=== PATIENT | female | born 1955 | race Caucasian/White ===

== ENCOUNTER → 2018-02-20 | Day surgery (SDC) | payer MEDICAID ==
[~2018-02-20] MED LIST: Midazolam 1 MG/ML 2 ML SDV ONE; Propofol 200 MG/20 ML SDV ONE; Sodium Chloride 0.9% 1,000 ML IV SCH; fentaNYL 100 MCG/2 ML SDV ONE
[2018-02-20 10:02] VITALS: BP 159/92
--- NOTE | 2018-02-23 07:41 | OR ---
DATE OF PROCEDURE: 02/20/2018 PROCEDURE: Colonoscopy. PREOPERATIVE DIAGNOSIS: Screening colonoscopy. POSTOPERATIVE DIAGNOSIS: Screening colonoscopy. FINDINGS: Diverticulosis. RISKS: Risks, benefits, alternatives, and limitations including, but not limited to infection, bleeding, and perforation were explained to the patient, who wished to proceed. COMPLICATION: None. EQUIPMENT MANAGER: None. ANESTHESIA: MAC. PROCEDURE IN DETAIL: The patient was placed in left lateral decubitus position. Digital rectal exam was performed without abnormality. The scope was introduced and advanced atraumatically to the ileocecal valve. A photo was taken of this. The scope was brought back to the ascending, transverse, descending colon, and retroflexed. No evidence of old or new blood. The patient diverticulosis described as mild and limited to sigmoid colon. No polyps. No blood. No masses. No other abnormalities. The patient tolerated the procedure well. Andrew Santoyo MD /[id number]
== END ==
LOC: JP.SDS 07:00
PROVIDERS: ATTEND Surgery
DX: Z12.11 Encounter for screening for malignant neoplasm of colon (principal); I10 Essential (primary) hypertension; Z88.8 Allergy status to other drugs, medicaments and biological substances; Z91.011 Allergy to milk products; Z91.018 Allergy to other foods
CPT/HCPCS: 45378; J2250; J2704; J3010

== ENCOUNTER 2019-03-16 06:52 | Day surgery (SDC) | payer MEDICAID ==
[2019-03-16] MEDS ORDERED: Propofol 200 MG/20 ML SDV ONE (06:53)
[2019-03-16] MEDS ORDERED: fentaNYL 100 MCG/2 ML SDV ONE (06:53)
[2019-03-16] MEDS ORDERED: Midazolam 1 MG/ML 2 ML SDV ONE (06:53)
[2019-03-16] MEDS ORDERED: Sodium Chloride 0.9% 1,000 ML IV SCH (07:30)
[2019-03-16 09:46] VITALS: BP 144/77; PULSE 80
--- NOTE | 2019-03-16 12:48 | OR ---
DATE OF PROCEDURE: 03/16/2019 SURGEON: Andrew Santoyo MD PROCEDURES: 1. Esophagogastroduodenoscopy. 2. Colonoscopy. FINDINGS: 1. Normal esophagogastroduodenoscopy. 2. Diverticulosis, mild, limited to the sigmoid colon without any evidence of old or new blood. 3. Transverse colon polyp, approximately 8 mm, completely removed using cold snare. 4. No definitive etiology for anemia (no evidence of old or new blood). COMPLICATIONS: None. [place] SEAMER: None. PREOPERATIVE DIAGNOSIS: History of anemia. POSTOPERATIVE DIAGNOSIS: History of anemia. RISKS: Risks, benefits, alternatives, and limitations including, but not limited to infection, bleeding, and perforation were explained to the patient and wished to proceed. PROCEDURE IN DETAIL: The patient was placed in left lateral decubitus position. Esophagogastroduodenoscopy scope was introduced and advanced atraumatically to the second part of the duodenum. Scope was brought back into the stomach. No evidence of gastritis, ulceration in the stomach or duodenum. The GE junction appeared normal. The esophagus was normal. No old or new blood noted in the upper scope. Digital rectal exam was performed next. Scope was introduced and advanced atraumatically to the ileocecal valve. The scope was brought back to the ascending, transverse, descending colon, and retroflexed. In the transverse colon, the aforementioned polyp was identified and completely removed using snare. No abnormalities on retroflexion. The diverticulosis was described as mild and limited to sigmoid colon without evidence of diverticulitis or diverticulosis. The etiology of the patient's anemia is most likely not related to her gastrointestinal tract, as there is no evidence of old or new blood. Although the patient does have diverticulosis noted, there is no definitive etiology of the bleeding. Although this is a possibility, there is no evidence of recent bleeding with respect to diverticulosis. The patient tolerated the procedure well. Andrew Santoyo MD /[id number]
== END 2019-03-16 09:40 | disposition home or self-care (01) ==
LOC: JP.SDS 06:52
PROVIDERS: ATTEND Surgery
DX: D12.3 Benign neoplasm of transverse colon (principal); K57.30 Diverticulosis of large intestine without perforation or abscess without bleeding; D64.9 Anemia, unspecified; I10 Essential (primary) hypertension; E11.9 Type 2 diabetes mellitus without complications; E66.01 Morbid (severe) obesity due to excess calories; Z68.44 Body mass index [BMI] 60.0-69.9, adult; Z91.011 Allergy to milk products; Z88.8 Allergy status to other drugs, medicaments and biological substances; Z91.018 Allergy to other foods; Z79.84 Long term (current) use of oral hypoglycemic drugs; Z79.82 Long term (current) use of aspirin; Z79.899 Other long term (current) drug therapy
CPT/HCPCS: 43235; 45385; 88305; J2250; J2704; J3010; J7030

== ENCOUNTER 2019-05-31 09:26 | Inpatient (IN) | payer MEDICAID ==
[2019-05-31] MEDS ORDERED: Tranexamic Acid 1,000 MG in Sodium Chloride 0.9% 50 ML IV PRN (09:51)
[2019-05-31] MEDS ORDERED: fentaNYL 100 MCG/2 ML SDV ONE (09:54)
[2019-05-31] MEDS ORDERED: Midazolam 1 MG/ML 2 ML SDV ONE (09:54)
[2019-05-31] MEDS ORDERED: Propofol 200 MG/20 ML SDV ONE ×2 (09:55→14:34)
[2019-05-31] MEDS ORDERED: Lactated Ringers 1,000 ML IV SCH (10:00)
[2019-05-31] MEDS ORDERED: ceFAZolin 2 GM in Premix Bag 1 BAG IV ONE (10:00)
[2019-05-31] MEDS: Nozin Nasal Sanitizer NASBOTH SCH ×2 (10:15→21:45)
[2019-05-31] MEDS: Tranexamic Acid 1,000 MG in Sodium Chloride 0.9% 50 ML IV ONE ×2 (12:29→18:26)
[2019-05-31] MEDS: ceFAZolin 2 GM in Sodium Chloride 0.9% 50 ML IV ONE ×2 (12:29→18:25)
[2019-05-31] MEDS ORDERED: Povidone-Iodine 10% Soln 118.25 ML Bottle ONE (12:30)
[2019-05-31] MEDS ORDERED: Succinylcholine 200 MG/10 ML MDV ONE (13:36)
[2019-05-31] MEDS ORDERED: Rocuronium 50 MG/5 ML Vial ONE (13:36)
[2019-05-31] MEDS ORDERED: Dexamethasone 4 MG/ML SDV ONE (13:46)
[2019-05-31] MEDS ORDERED: Ondansetron 4 MG/2 ML SDV ONE (13:46)
[2019-05-31] MEDS ORDERED: Tranexamic Acid 1,000 MG in Sodium Chloride 0.9% 50 ML IV ONE (15:00)
[2019-05-31] MEDS ORDERED: Morphine 2 MG/ML Syringe IVPUSH ONE (15:02)
[2019-05-31] MEDS ORDERED: hydrOXYzine HCl 100 MG/2 ML SDV IM ONE (15:03)
--- NOTE | 2019-05-31 15:27 | CR ---
Knee 1V or 2V Rt CLINICAL HISTORY: Right knee pain FINDINGS: Patient is status post recent to 3 component total knee arthroplasty. Components appear well seated. Intra-articular and subcutaneous Impression: Status post recent right knee arthroplasty
[2019-05-31] MEDS ORDERED: Acetaminophen/HYDROcodone 325-5 MG Tab PO PRN (17:09)
[2019-05-31] MEDS ORDERED: Acetaminophen 325 MG Tab PO PRN (17:09)
[2019-05-31] MEDS: Acetaminophen/oxyCODONE 325-5 MG Tab PO PRN ×2 (17:25→21:27)
[2019-05-31] MEDS: Morphine 2 MG/ML Syringe IVPUSH PRN ×3 (17:56→23:35)
[2019-05-31] MEDS: ceFAZolin 1 GM in Premix Bag 1 BAG IV SCH (18:06)
[2019-05-31] MEDS: Docusate Sodium 100 MG Cap PO PRN (21:27)
[2019-06-01] MEDS: Acetaminophen/oxyCODONE 325-5 MG Tab PO PRN ×6 (01:12→23:24)
[2019-06-01] MEDS: ceFAZolin 1 GM in Premix Bag 1 BAG IV SCH ×2 (01:13→10:07)
[2019-06-01] MEDS: Sodium Chloride 0.9% 1,000 ML IV SCH ×2 (01:22→12:11)
[2019-06-01] MEDS: Morphine 2 MG/ML Syringe IVPUSH PRN ×2 (07:49→17:23)
[2019-06-01] MEDS: Potassium Chloride 10 MEQ Cap.ER PO SCH (08:52)
[2019-06-01] MEDS: Nozin Nasal Sanitizer NASBOTH SCH ×2 (08:52→22:03)
[2019-06-01] MEDS: metFORMIN 500 MG Tab PO SCH ×2 (08:52→16:34)
[2019-06-01] MEDS: Enoxaparin 30 MG/0.3 ML Syringe SUBCUT SCH (08:53)
[2019-06-01] MEDS: Lisinopril 20 MG Tab PO SCH (08:53)
[2019-06-01] MEDS: glipiZIDE 5 MG Tab.ER PO SCH (08:53)
[2019-06-01] MEDS ORDERED: [UNRECOGNIZED DRUG - OTHER] PO SCH (09:00)
--- NOTE | 2019-06-01 12:44 | PCM.SURGPN ---
- General Info Date of Service: 06/01/19 POD#: 1 Post-Op Diagnosis: S/P right total knee arthoplasty Functional Status: Reports: Pain Controlled, Tolerating Diet - Review of Systems General: Reports: No Symptoms HEENT: Reports: No Symptoms Pulmonary: Reports: No Symptoms Cardiovascular: Reports: No Symptoms Gastrointestinal: Reports: No Symptoms Genitourinary: Reports: No Symptoms Musculoskeletal: Reports: Leg Pain Skin: Reports: No Symptoms Neurological: Reports: No Symptoms Psychiatric: Reports: No Symptoms - Patient Data Vitals - Most Recent: Last Vital Signs Temp 36.5 C 06/01/19 12:04 Pulse 94 06/01/19 12:04 Resp 16 06/01/19 12:04 BP 152/72 H 06/01/19 12:04 Pulse Ox 95 06/01/19 12:04 Weight - Most Recent: 142.428 kg I&O - Last 24 Hours: Intake & Output 05/31/19 06/01/19 06/01/19 22:59 06:59 14:59 Intake Total 856 1870 530 Output Total 450 1900 Balance 406 -30 530 Lab Results Last 24 Hrs: Laboratory Results - last 24 hr 06/01/19 Range/Units 05:15 WBC 14.4 H (4.5-11.0) K/uL RBC 4.01 (3.30-5.50) M/uL Hgb 9.9 L D (12.0-15.0) g/dL Hct 32.0 L (36.0-48.0) % MCV 80 (80-98) fL MCH 25 L (27-31) pg MCHC 31 L (32-36) % Plt Count 300 (150-400) K/uL Med Orders - Current: Current Medications Acetaminophen (Tylenol) 650 mg PO Q4H PRN PRN Reason: Pain/Fever Hydrocodone Bitart/Acetaminophen (Leslie 325-5 Mg) 1 tab PO Q3H PRN PRN Reason: Pain (mild 1-3) Bandage/Support Products ( Nasal Soil Scientist) 1 applic NASBOTH BID [facility] Last Admin: 06/01/19 08:52 Dose: 1 applic Docusate Sodium (Colace) 100 mg PO BID PRN PRN Reason: Constipation Last Admin: 05/31/19 21:27 Dose: 100 mg Enoxaparin Sodium (Lovenox) 30 mg SUBCUT DAILY [facility] Last Admin: 06/01/19 08:53 Dose: 30 mg Glipizide (Glucotrol Xl) 10 mg PO DAILY [facility] Last Admin: 06/01/19 08:53 Dose: 10 mg Lactated Ringer's (Ringers, Lactated) 1,000 mls @ 75 mls/hr IV ASDIRECTED [facility] Last Admin: 05/31/19 10:52 Dose: 75 mls/hr Sodium Chloride (Normal Saline) 1,000 mls @ 125 mls/hr IV ASDIRECTED [facility] Last Admin: 06/01/19 12:11 Dose: 125 mls/hr Lisinopril (Prinivil) 40 mg PO DAILY [facility] Last Admin: 06/01/19 08:53 Dose: 40 mg Magnesium Hydroxide (Milk Of Magnesia) 30 ml PO BID PRN PRN Reason: Constipation Metformin HCl (Glucophage) 1,000 mg PO BIDMEALS [facility] Last Admin: 06/01/19 08:52 Dose: 1,000 mg Morphine Sulfate (Morphine) 2 mg IVPUSH Q1H PRN PRN Reason: Breakthrough Pain Last Admin: 06/01/19 07:49 Dose: 2 mg Oxycodone/Acetaminophen (Percocet 325-5 Mg) 1 - 2 tab PO Q4H PRN PRN Reason: Pain Last Admin: 06/01/19 09:49 Dose: 2 tab Potassium Chloride (Potassium Chloride) 10 meq PO DAILY [facility] Last Admin: 06/01/19 08:52 Dose: 10 meq Discontinued Medications Dexamethasone (Dexamethasone) Confirm Administered Dose 4 mg .ROUTE .STK-MED ONE Stop: 05/31/19 13:47 Fentanyl (Sublimaze) Confirm Administered Dose 100 mcg .ROUTE .STK-MED ONE Stop: 05/31/19 09:55 Hydroxyzine HCl (Vistaril) 100 mg IM ONETIME ONE Stop: 05/31/19 15:04 Last Admin: 05/31/19 15:08 Dose: 100 mg Cefazolin Sodium 2 gm/ Sodium (Chloride) 50 mls @ 100 mls/hr IV ONETIME ONE Stop: 05/31/19 10:29 Last Admin: 05/31/19 18:25 Dose: Not Given Tranexamic Acid 1,000 mg/ (Sodium Chloride) 60 mls @ 240 mls/hr IV ONETIME ONE Stop: 05/31/19 11:29 Last Admin: 05/31/19 18:26 Dose: Not Given Tranexamic Acid 1,000 mg/ (Sodium Chloride) 60 mls @ 240 mls/hr IV ONETIME ONE Stop: 05/31/19 15:14 Last Admin: 05/31/19 15:04 Dose: 240 mls/hr Cefazolin Sodium/Dextrose 1 gm (/ Premix) 50 mls @ 100 mls/hr IV Q8H [facility] Stop: 06/01/19 10:29 Last Admin: 06/01/19 10:07 Dose: 100 mls/hr Midazolam HCl (Versed 1 Mg/Ml) Confirm Administered Dose 2 mg .ROUTE .STK-MED ONE Stop: 05/31/19 09:55 Morphine Sulfate (Morphine) 2 mg IVPUSH ONETIME ONE Stop: 05/31/19 15:03 Last Admin: 05/31/19 15:08 Dose: 2 mg Ondansetron HCl (Zofran) Confirm Administered Dose 4 mg .ROUTE .STK-MED ONE Stop: 05/31/19 13:47 Povidone Iodine (Betadine 10% Soln) Confirm Administered Dose 1 ml .ROUTE .STK- MED ONE Stop: 05/31/19 12:31 Last Admin: 05/31/19 13:36 Dose: 60 ml Propofol (Diprivan 20 Ml) Confirm Administered Dose 200 mg .ROUTE .STK-MED ONE Stop: 05/31/19 09:56 Propofol (Diprivan 20 Ml) Confirm Administered Dose 200 mg .ROUTE .STK-MED ONE Stop: 05/31/19 14:35 Rocuronium [place] (Zemuron) Confirm Administered Dose 50 mg .ROUTE .STK-MED ONE Stop: 05/31/19 13:37 Succinylcholine Chloride (Quelicin) Confirm Administered Dose 200 mg .ROUTE .STK -MED ONE Stop: 05/31/19 13:37 - Exam Wound/Incisions: Dressing Dry and Intact General: Alert, Oriented HEENT: Pupils Equal Neck: Supple Lungs: Clear to Auscultation, Normal Respiratory Effort Cardiovascular: Regular Rate, Regular Rhythm GI/Abdominal Exam: Normal Bowel Sounds, Soft, Non-Tender, No Organomegaly, No Distention, No Abnormal Bruit, No Mass, Pelvis Stable Extremities: Leg Pain, Limited Range of Motion Skin: Warm, Dry, Intact Neurological: No New Focal Deficit Psy/Mental Status: Alert, Normal Affect, Normal Mood - Problem List & Annotations (1) Morbid obesity SNOMED Code(s): 247358052 Code(s): E66.01 - MORBID (SEVERE) OBESITY DUE TO EXCESS CALORIES Status: Acute Current Visit: Yes (2) Postoperative anemia due to acute blood loss SNOMED Code(s): 74183272801847116 Code(s): D62 - ACUTE POSTHEMORRHAGIC ANEMIA Status: Acute Current Visit: Yes (3) Status post total right knee replacement SNOMED Code(s): 2361190068937, 3918688054298 Code(s): Z96.651 - PRESENCE OF RIGHT ARTIFICIAL KNEE JOINT Status: Acute Current Visit: Yes (4) Diabetes mellitus SNOMED Code(s): 34504138 Code(s): E11.9 - TYPE 2 DIABETES MELLITUS WITHOUT COMPLICATIONS Status: Acute Current Visit: Yes Qualifiers: Diabetes mellitus type: type 2 Diabetes mellitus rodent exterminator insulin use: without long-term use (5) Hypertension SNOMED Code(s): 74842761 Code(s): I10 - ESSENTIAL (PRIMARY) HYPERTENSION Status: Acute Current Visit: Yes - Problem List Review Problem List Initiated/Reviewed/Updated: Yes - My Orders Last 24 Hours: Active Orders 24 hr Category Date Time Status Admission Status [Patient Status] [ADT] Routine ADT 05/31/19 15:50 Active Patient Status [ADT] Routine ADT 05/31/19 17:09 Active Ambulate [RC] QID Care 05/31/19 17:09 Active Antiembolic Devices [RC] .Routine Care 05/31/19 17:09 Active Cooling Warming Measures [RC] ASDIRECTED Care 05/31/19 17:09 Active Head of Bed Elevation [RC] ASDIRECTED Care 05/31/19 17:09 Active Intake and Output [RC] QSHIFT Care 05/31/19 17:09 Active May Shower [RC] ASDIRECTED Care 05/31/19 17:09 Active Neurovascular Check [RC] Q4H Care 05/31/19 17:09 Active Oxygen Therapy [RC] PRN Care 05/31/19 17:09 Active Pneumonia Education [RC] UPON Care 05/31/19 17:09 Active RT Incentive Spirometry [RC] Q1HWA Care 05/31/19 17:09 Active Up to Chair [RC] QID Care 05/31/19 17:09 Active VTE/DVT Education [RC] Click to Edit Care 05/31/19 17:10 Active Vital Signs [RC] Q4H Care 05/31/19 17:09 Active Wound Care [RC] Q12H Care 05/31/19 17:09 Active Consult to Case Management/Equipment Associate [CONS] Cons 05/31/19 17:09 Active Routine PT Evaluation and Treatment [CONS] Routine Cons 05/31/19 17:09 Active Cardiac Diet [Heart Healthy Diet] [DIET] Diet 06/01/19 Breakfast Active Acetaminophen [Tylenol] Med 05/31/19 17:09 Active 650 mg PO Q4H PRN Acetaminophen/HYDROcodone [Leslie 325-5 MG] Med 05/31/19 17:09 Active 1 tab PO Q3H PRN Acetaminophen/oxyCODONE [Percocet 325-5 MG] Med 05/31/19 17:09 Active 1 - 2 tab PO Q4H PRN Docusate Sodium [Colace] Med 05/31/19 17:09 Active 100 mg PO BID PRN Enoxaparin [Lovenox] Med 06/01/19 09:00 Active 30 mg SUBCUT DAILY Lisinopril [Prinivil] Med 06/01/19 09:00 Active 40 mg PO DAILY Magnesium Hydroxide [Milk of Magnesia] Med 05/31/19 17:09 Active 30 ml PO BID PRN Morphine Med 05/31/19 17:09 Active 2 mg IVPUSH Q1H PRN Potassium Chloride Med 06/01/19 09:00 Active 10 meq PO DAILY Sodium Chloride 0.9% [Normal Saline] 1,000 ml Med 05/31/19 17:15 Active IV ASDIRECTED glipiZIDE [Glucotrol XL] Med 06/01/19 09:00 Active 10 mg PO DAILY metFORMIN [Glucophage] Med 06/01/19 08:00 Active 1,000 mg PO BIDMEALS Antiembolic Hose [OM.PC] Routine Oth 05/31/19 17:09 Ordered DVT/VTE Prophylaxis Reflex [OM.PC] Routine Oth 05/31/19 17:09 Ordered Ice Therapy [OM.PC] Per Unit Routine Oth 05/31/19 17:09 Ordered Medication Continuation Instructions [OM.PC] Per Unit Oth 05/31/19 17:09 Ordered Routine Oral Care [OM.PC] Routine Oth 05/31/19 17:09 Ordered Sequential Compression Device [OM.PC] Routine Oth 05/31/19 17:09 Ordered Resuscitation Status Routine Resus Stat 05/31/19 17:09 Ordered Medication Orders Acetaminophen (Tylenol) 650 mg PO Q4H PRN PRN Reason: Pain/Fever Hydrocodone Bitart/Acetaminophen ([place]lie 325-5 Mg) 1 tab PO Q3H PRN PRN Reason: Pain (mild 1-3) Bandage/Support Products ( Nasal Soil Scientist) 1 applic NASBOTH BID [facility] Last Admin: 06/01/19 08:52 Dose: 1 applic Admin: 05/31/19 21:45 Dose: 1 applic Admin: 05/31/19 10:15 Dose: 1 applic Docusate Sodium (Colace) 100 mg PO BID PRN PRN Reason: Constipation Last Admin: 05/31/19 21:27 Dose: 100 mg Enoxaparin Sodium (Lovenox) 30 mg SUBCUT DAILY [facility] Last Admin: 06/01/19 08:53 Dose: 30 mg Glipizide (Glucotrol Xl) 10 mg PO DAILY [facility] Last Admin: 06/01/19 08:53 Dose: 10 mg Lactated Ringer's (Ringers, Lactated) 1,000 mls @ 75 mls/hr IV ASDIRECTED [facility] Last Admin: 05/31/19 10:52 Dose: 75 mls/hr Sodium Chloride (Normal Saline) 1,000 mls @ 125 mls/hr IV ASDIRECTED [facility] Last Admin: 06/01/19 12:11 Dose: 125 mls/hr Infusion: 06/01/19 09:22 Dose: 125 mls/hr Admin: 06/01/19 01:22 Dose: 125 mls/hr Lisinopril (Prinivil) 40 mg PO DAILY [facility] Last Admin: 06/01/19 08:53 Dose: 40 mg Magnesium Hydroxide (Milk Of Magnesia) 30 ml PO BID PRN PRN Reason: Constipation Metformin HCl (Glucophage) 1,000 mg PO BIDMEALS [facility] Last Admin: 06/01/19 08:52 Dose: 1,000 mg Morphine Sulfate (Morphine) 2 mg IVPUSH Q1H PRN PRN Reason: Breakthrough Pain Last Admin: 06/01/19 07:49 Dose: 2 mg Admin: 05/31/19 23:35 Dose: 2 mg Admin: 05/31/19 19:50 Dose: 2 mg Admin: 05/31/19 17:56 Dose: 2 mg Oxycodone/Acetaminophen (Percocet 325-5 Mg) 1 - 2 tab PO Q4H PRN PRN Reason: Pain Last Admin: 06/01/19 09:49 Dose: 2 tab Admin: 06/01/19 05:42 Dose: 2 tab Admin: 06/01/19 01:12 Dose: 2 tab Admin: 05/31/19 21:27 Dose: 2 tab Admin: 05/31/19 17:25 Dose: 2 tab Potassium Chloride (Potassium Chloride) 10 meq PO DAILY [facility] Last Admin: 06/01/19 08:52 Dose: 10 meq - Assessment Assessment (Free Text/Narrative):: Did ok overnight, pain fairly well controlled, a little nausea likely secondary to po meds, has been up to chair - Plan Plan (Free Text/Narrative):: Continue OT/PT, Lozano out today, Saline lock IV, she would like to try to get home with Home Health, will have to see how she does with walking today and tomorrow, may need SNF/Rehab
[2019-06-01] MEDS: Docusate Sodium 100 MG Cap PO PRN (17:23)
[2019-06-02] MEDS: Acetaminophen/oxyCODONE 325-5 MG Tab PO PRN ×5 (03:48→23:54)
[2019-06-02] MEDS: Nozin Nasal Sanitizer NASBOTH SCH ×2 (09:04→22:00)
[2019-06-02] MEDS: glipiZIDE 5 MG Tab.ER PO SCH (09:07)
[2019-06-02] MEDS: Enoxaparin 30 MG/0.3 ML Syringe SUBCUT SCH (09:07)
[2019-06-02] MEDS: Potassium Chloride 10 MEQ Cap.ER PO SCH (09:07)
[2019-06-02] MEDS: metFORMIN 500 MG Tab PO SCH ×2 (09:08→17:58)
[2019-06-02] MEDS: Lisinopril 20 MG Tab PO SCH (09:09)
[2019-06-02] MEDS: Docusate Sodium 100 MG Cap PO PRN (09:19)
--- NOTE | 2019-06-02 13:16 | PCM.SURGPN ---
- General Info Date of Service: 06/02/19 POD#: 2 Functional Status: Reports: Pain Controlled, Tolerating Diet - Review of Systems General: Reports: No Symptoms HEENT: Reports: Headaches Pulmonary: Reports: No Symptoms Cardiovascular: Reports: No Symptoms Gastrointestinal: Reports: No Symptoms Genitourinary: Reports: No Symptoms Musculoskeletal: Reports: Leg Pain Skin: Reports: No Symptoms Neurological: Reports: No Symptoms Psychiatric: Reports: No Symptoms - Patient Data Vitals - Most Recent: Last Vital Signs Temp 37.0 C 06/02/19 10:29 Pulse 101 H 06/02/19 10:29 Resp 16 06/02/19 10:29 BP 148/67 H 06/02/19 10:29 Pulse Ox 99 06/02/19 10:29 Weight - Most Recent: 142.428 kg I&O - Last 24 Hours: Intake & Output 06/01/19 06/02/19 06/02/19 22:59 06:59 14:59 Intake Total 1548 120 Output Total 1525 750 Balance 23 -750 120 Med Orders - Current: Current Medications Acetaminophen (Tylenol) 650 mg PO Q4H PRN PRN Reason: Pain/Fever Hydrocodone Bitart/Acetaminophen ([place] 325-5 Mg) 1 tab PO Q3H PRN PRN Reason: Pain (mild 1-3) Bandage/Support Products ( Nasal Spool Salvager) 1 applic NASBOTH BID [facility] Last Admin: 06/02/19 09:04 Dose: 1 applic Docusate Sodium (Colace) 100 mg PO BID PRN PRN Reason: Constipation Last Admin: 06/02/19 09:19 Dose: 100 mg Enoxaparin Sodium (Lovenox) 30 mg SUBCUT DAILY [facility] Last Admin: 06/02/19 09:07 Dose: 30 mg Glipizide (Glucotrol Xl) 10 mg PO DAILY [facility] Last Admin: 06/02/19 09:07 Dose: 10 mg Sodium Chloride (Normal Saline) 1,000 mls @ 125 mls/hr IV ASDIRECTED [facility] Last Admin: 06/01/19 12:11 Dose: 125 mls/hr Lisinopril (Prinivil) 40 mg PO DAILY [facility] Last Admin: 06/02/19 09:09 Dose: 40 mg Magnesium Hydroxide (Milk Of Magnesia) 30 ml PO BID PRN PRN Reason: Constipation Metformin HCl (Glucophage) 1,000 mg PO BIDMEALS [facility] Last Admin: 06/02/19 09:08 Dose: 1,000 mg Morphine Sulfate (Morphine) 2 mg IVPUSH Q1H PRN PRN Reason: Breakthrough Pain Last Admin: 06/01/19 17:23 Dose: 2 mg Oxycodone/Acetaminophen (Percocet 325-5 Mg) 1 - 2 tab PO Q4H PRN PRN Reason: Pain Last Admin: 06/02/19 09:01 Dose: 2 tab Potassium Chloride (Potassium Chloride) 10 meq PO DAILY [facility] Last Admin: 06/02/19 09:07 Dose: 10 meq Discontinued Medications Dexamethasone (Dexamethasone) Confirm Administered Dose 4 mg .ROUTE .STK-MED ONE Stop: 05/31/19 13:47 Fentanyl (Sublimaze) Confirm Administered Dose 100 mcg .ROUTE .STK-MED ONE Stop: 05/31/19 09:55 Hydroxyzine HCl (Vistaril) 100 mg IM ONETIME ONE Stop: 05/31/19 15:04 Last Admin: 05/31/19 15:08 Dose: 100 mg Lactated Ringer's (Ringers, Lactated) 1,000 mls @ 75 mls/hr IV ASDIRECTED [facility] Last Admin: 05/31/19 10:52 Dose: 75 mls/hr Cefazolin Sodium 2 gm/ Sodium (Chloride) 50 mls @ 100 mls/hr IV ONETIME ONE Stop: 05/31/19 10:29 Last Admin: 05/31/19 18:25 Dose: Not Given Tranexamic Acid 1,000 mg/ (Sodium Chloride) 60 mls @ 240 mls/hr IV ONETIME ONE Stop: 05/31/19 11:29 Last Admin: 05/31/19 18:26 Dose: Not Given Tranexamic Acid 1,000 mg/ (Sodium Chloride) 60 mls @ 240 mls/hr IV ONETIME ONE Stop: 05/31/19 15:14 Last Admin: 05/31/19 15:04 Dose: 240 mls/hr Cefazolin Sodium/Dextrose 1 gm (/ Premix) 50 mls @ 100 mls/hr IV Q8H [facility] Stop: 06/01/19 10:29 Last Admin: 06/01/19 10:07 Dose: 100 mls/hr Midazolam HCl (Versed 1 Mg/Ml) Confirm Administered Dose 2 mg .ROUTE .STK-MED ONE Stop: 05/31/19 09:55 Morphine Sulfate (Morphine) 2 mg IVPUSH ONETIME ONE Stop: 05/31/19 15:03 Last Admin: 05/31/19 15:08 Dose: 2 mg Ondansetron HCl (Zofran) Confirm Administered Dose 4 mg .ROUTE .STK-MED ONE Stop: 05/31/19 13:47 Povidone Iodine (Betadine 10% Soln) Confirm Administered Dose 1 ml .ROUTE .STK- MED ONE Stop: 05/31/19 12:31 Last Admin: 05/31/19 13:36 Dose: 60 ml Propofol (Diprivan 20 Ml) Confirm Administered Dose 200 mg .ROUTE .STK-MED ONE Stop: 05/31/19 09:56 Propofol (Diprivan 20 Ml) Confirm Administered Dose 200 mg .ROUTE .STK-MED ONE Stop: 05/31/19 14:35 Rocuronium [place] (Zemuron) Confirm Administered Dose 50 mg .ROUTE .STK-MED ONE Stop: 05/31/19 13:37 Succinylcholine Chloride (Quelicin) Confirm Administered Dose 200 mg .ROUTE .STK -MED ONE Stop: 05/31/19 13:37 - Exam Wound/Incisions: Healing Well, No Drainage General: Alert, Oriented HEENT: Pupils Equal Neck: Supple Lungs: Clear to Auscultation, Normal Respiratory Effort Cardiovascular: Regular Rate, Regular Rhythm GI/Abdominal Exam: Normal Bowel Sounds, Soft, Non-Tender, No Organomegaly, No Distention, No Abnormal Bruit, No Mass, Pelvis Stable Extremities: Limited Range of Motion Skin: Warm, Dry, Intact Neurological: No New Focal Deficit Psy/Mental Status: Alert, Normal Affect, Normal Mood - Problem List & Annotations (1) Morbid obesity SNOMED Code(s): 459436367 Code(s): E66.01 - MORBID (SEVERE) OBESITY DUE TO EXCESS CALORIES Status: Acute Current Visit: Yes (2) Postoperative anemia due to acute blood loss SNOMED Code(s): 54839637896685552 Code(s): D62 - ACUTE POSTHEMORRHAGIC ANEMIA Status: Acute Current Visit: Yes (3) Status post total right knee replacement SNOMED Code(s): 3854295943685, 7612384241102 Code(s): Z96.651 - PRESENCE OF RIGHT ARTIFICIAL KNEE JOINT Status: Acute Current Visit: Yes (4) Diabetes mellitus SNOMED Code(s): 57627603 Code(s): E11.9 - TYPE 2 DIABETES MELLITUS WITHOUT COMPLICATIONS Status: Acute Current Visit: Yes Qualifiers: Diabetes mellitus type: type 2 Diabetes 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 (5) Hypertension SNOMED Code(s): 21814675 Code(s): I10 - ESSENTIAL (PRIMARY) HYPERTENSION Status: Acute Current Visit: Yes - Problem List Review Problem List Initiated/Reviewed/Updated: Yes - My Orders Last 24 Hours: Active Orders 24 hr Category Date Time Status Admission Status [Patient Status] [ADT] Routine ADT 06/01/19 12:38 Active Blood Glucose Check, Bedside [RC] BIDAC Care 06/01/19 12:45 Active GLUCOSE POC LAB TO COLLECT [POC] BIDAC Lab 06/02/19 17:00 Ordered Convert IV to Saline Lock [OM.PC] Routine Oth 06/01/19 17:35 Ordered Medication Orders Acetaminophen (Tylenol) 650 mg PO Q4H PRN PRN Reason: Pain/Fever Hydrocodone Bitart/Acetaminophen ([place] 325-5 Mg) 1 tab PO Q3H PRN PRN Reason: Pain (mild 1-3) Bandage/Support Products ( Nasal Spool Salvager) 1 applic NASBOTH BID [facility] Last Admin: 06/02/19 09:04 Dose: 1 applic Admin: 06/01/19 22:03 Dose: 1 applic Admin: 06/01/19 08:52 Dose: 1 applic Admin: 05/31/19 21:45 Dose: 1 applic Admin: 05/31/19 10:15 Dose: 1 applic Docusate Sodium (Colace) 100 mg PO BID PRN PRN Reason: Constipation Last Admin: 06/02/19 09:19 Dose: 100 mg Admin: 06/01/19 17:23 Dose: 100 mg Admin: 05/31/19 21:27 Dose: 100 mg Enoxaparin Sodium (Lovenox) 30 mg SUBCUT DAILY [facility] Last Admin: 06/02/19 09:07 Dose: 30 mg Admin: 06/01/19 08:53 Dose: 30 mg Glipizide (Glucotrol Xl) 10 mg PO DAILY [facility] Last Admin: 06/02/19 09:07 Dose: 10 mg Admin: 06/01/19 08:53 Dose: 10 mg Sodium Chloride (Normal Saline) 1,000 mls @ 125 mls/hr IV ASDIRECTED [facility] Last Admin: 06/01/19 12:11 Dose: 125 mls/hr Infusion: 06/01/19 09:22 Dose: 125 mls/hr Admin: 06/01/19 01:22 Dose: 125 mls/hr Lisinopril (Prinivil) 40 mg PO DAILY [facility] Last Admin: 06/02/19 09:09 Dose: 40 mg Admin: 06/01/19 08:53 Dose: 40 mg Magnesium Hydroxide (Milk Of Magnesia) 30 ml PO BID PRN PRN Reason: Constipation Metformin HCl (Glucophage) 1,000 mg PO BIDMEALS [facility] Last Admin: 06/02/19 09:08 Dose: 1,000 mg Admin: 06/01/19 16:34 Dose: 1,000 mg Admin: 06/01/19 08:52 Dose: 1,000 mg Morphine Sulfate (Morphine) 2 mg IVPUSH Q1H PRN PRN Reason: Breakthrough Pain Last Admin: 06/01/19 17:23 Dose: 2 mg Admin: 06/01/19 07:49 Dose: 2 mg Admin: 05/31/19 23:35 Dose: 2 mg Admin: 05/31/19 19:50 Dose: 2 mg Admin: 05/31/19 17:56 Dose: 2 mg Oxycodone/Acetaminophen (Percocet 325-5 Mg) 1 - 2 tab PO Q4H PRN PRN Reason: Pain Last Admin: 06/02/19 09:01 Dose: 2 tab Admin: 06/02/19 03:48 Dose: 2 tab Admin: 06/01/19 23:24 Dose: 2 tab Admin: 06/01/19 19:17 Dose: 2 tab Admin: 06/01/19 14:32 Dose: 2 tab Admin: 06/01/19 09:49 Dose: 2 tab Admin: 06/01/19 05:42 Dose: 2 tab Admin: 06/01/19 01:12 Dose: 2 tab Admin: 05/31/19 21:27 Dose: 2 tab Admin: 05/31/19 17:25 Dose: 2 tab Potassium Chloride (Potassium Chloride) 10 meq PO DAILY [facility] Last Admin: 06/02/19 09:07 Dose: 10 meq Admin: 06/01/19 08:52 Dose: 10 meq - Assessment Assessment (Free Text/Narrative):: Pain fairly well controlled, very limited mobility, has only been up for limited distances in the room, has not been up in halls yet, dressings removed, incision looks very good. - Plan Plan (Free Text/Narrative):: Continue PT/OT, hopefully can get up in [place] today. She is still wanting to try to get home, may not be realistic, if not making significant progress by this afternoon will have to look at SNF placement
[2019-06-03] MEDS: Acetaminophen/oxyCODONE 325-5 MG Tab PO PRN ×5 (05:30→23:51)
[2019-06-03] MEDS: Magnesium Hydroxide 400 MG/5 ML Susp 30 ML Cup PO PRN ×2 (05:30→13:03)
--- NOTE | 2019-06-03 08:15 | OR ---
DATE OF PROCEDURE: 05/31/2019 SURGEON: Say Muniz MD PREOPERATIVE DIAGNOSIS: End-stage osteoarthritis, right knee. POSTOPERATIVE DIAGNOSIS: End-stage osteoarthritis, right knee. PROCEDURE: Right total knee arthroplasty using Héctor Persona components. ANESTHESIA: Spinal plus general. INDICATIONS: Ms. Mcgee is a 63-year-old female with a history of severe bilateral knee pain for the past few years. She has failed conservative treatment. She now presents for right total knee arthroplasty. The patient does have a significantly elevated BMI, and she is aware that she is at increased risk for complications due to this. DESCRIPTION OF PROCEDURE: Initial attempt at a spinal anesthetic was done, which initially looked promising, however, was showing signs of incomplete block, and the patient then required general anesthesia with intubation. After this was accomplished, the right leg was prepped and draped in a sterile fashion with a tourniquet about the upper thigh. Leg was exsanguinated and tourniquet inflated to 300 mmHg pressure. A longitudinal incision was made over the anterior aspect of the knee and carried down through the subcutaneous tissues. Medial parapatellar arthrotomy was performed. The posterior aspect of the patella was resected with an oscillating saw. Intramedullary canal of the femur was entered with the drill and intramedullary guide was placed. Distal cutting jig was secured and the distal femoral cut was made. Extramedullary tibial alignment jig was placed and secured. The proximal tibia was resected. Remaining medial and lateral menisci were excised. Attention was returned to the femur, which was sized, and drill holes placed for the distal cutting jig. This was tapped into position and the anterior, posterior, and chamfer cuts were then made. Trial femoral component was placed and centered. Intercondylar notch cut was then made for a posterior cruciate sacrificing component. Tibia was sized and a trial tibial insert was placed. Knee was taken through range of motion, centering the tibial tray, which was then secured with a pin. Articular trial and femoral trials were removed and tibial preparation was then completed with a reamer and punch. The patella was drilled for a 29 mm patellar button. Knee was thoroughly irrigated with pulse lavage. Bone surfaces were then dried. Components were cemented in place. Excess cement was removed. The knee was held in full extension with a trial insert until the cement had cured. The knee was then taken through range of motion. Did show some lateral subluxation of the patella and a lateral release was performed, which allowed normal tracking. Polyethylene insert size was determined. The trial was removed. The final polyethylene was snapped into position. Knee was then thoroughly irrigated with the pulse lavage. This was followed by irrigation with a dilute Betadine solution, which was left for approximately 2-1/2 minutes and then irrigated once again. Knee was closed with a #2 Ethibond. Skin closed with 2-0 Vicryl and a running 3-0 Monocryl. Steri- Strips were applied. Sterile dressing was placed and the knee was wrapped with a light compressive dressing. The patient tolerated the procedure very well. There were no complications. Taken from the operating room in stable condition. Say Muniz MD /[id number]
[2019-06-03] MEDS: Enoxaparin 30 MG/0.3 ML Syringe SUBCUT SCH (09:45)
[2019-06-03] MEDS: glipiZIDE 5 MG Tab.ER PO SCH (09:45)
[2019-06-03] MEDS: metFORMIN 500 MG Tab PO SCH ×2 (09:45→17:01)
[2019-06-03] MEDS: Potassium Chloride 10 MEQ Cap.ER PO SCH (09:45)
[2019-06-03] MEDS: Lisinopril 20 MG Tab PO SCH (09:46)
[2019-06-03] MEDS: Nozin Nasal Sanitizer NASBOTH SCH ×2 (09:46→21:30)
[2019-06-03] MEDS: Docusate Sodium 100 MG Cap PO PRN (13:03)
[2019-06-03] MEDS ORDERED: Sodium Phosphate,Monobasic/Sodium Phosphate,Dibasic Enema 133 ML Bottle RECTAL ONE (18:39)
[2019-06-04] MEDS ORDERED: Bisacodyl 10 MG Supp RECTAL ONE (04:00)
[2019-06-04] MEDS: Magnesium Hydroxide 400 MG/5 ML Susp 30 ML Cup PO PRN (05:15)
[2019-06-04] MEDS: Docusate Sodium 100 MG Cap PO PRN (05:15)
[2019-06-04 07:51] VITALS: BP 157/69; PULSE 107
[2019-06-04] MEDS: metFORMIN 500 MG Tab PO SCH (08:41)
[2019-06-04] MEDS: Nozin Nasal Sanitizer NASBOTH SCH (08:42)
[2019-06-04] MEDS: Enoxaparin 30 MG/0.3 ML Syringe SUBCUT SCH (08:43)
[2019-06-04] MEDS: glipiZIDE 5 MG Tab.ER PO SCH (08:43)
[2019-06-04] MEDS: Lisinopril 20 MG Tab PO SCH (08:44)
[2019-06-04] MEDS: Potassium Chloride 10 MEQ Cap.ER PO SCH (08:44)
[2019-06-04] MEDS: Acetaminophen/oxyCODONE 325-5 MG Tab PO PRN (08:46)
--- NOTE | 2019-06-04 09:22 | PCM.DCSUM1 ---
Discharge Summary - Hospital Course Free Text/Narrative:: 63 year old admittd for elective right Total Knee Arthroplasty Diagnosis: Stroke: No - Discharge Data Discharge Date: 06/04/19 Discharge Disposition: DC/Tfer to SNF 03 Condition: Good - Referral to Home Health Date of Face to Face Encounter: 06/04/19 Primary Care Physician: Felice Landa MD - Discharge Diagnosis/Problem(s) (1) Morbid obesity SNOMED Code(s): 658188330 ICD Code: E66.01 - MORBID (SEVERE) OBESITY DUE TO EXCESS CALORIES Status: Chronic Current Visit: Yes (2) Postoperative anemia due to acute blood loss SNOMED Code(s): 84582264213270539 ICD Code: D62 - ACUTE POSTHEMORRHAGIC ANEMIA Status: Acute Current Visit : Yes (3) Status post total right knee replacement SNOMED Code(s): 9570005625272, 1967743379506 ICD Code: Z96.651 - PRESENCE OF RIGHT ARTIFICIAL KNEE JOINT Status: Acute Current Visit: Yes (4) Diabetes mellitus SNOMED Code(s): 87105504 ICD Code: E11.9 - TYPE 2 DIABETES MELLITUS WITHOUT COMPLICATIONS Status: Chronic Current Visit: Yes Qualifiers: Diabetes mellitus type: type 2 Diabetes mellitus extermination inspector insulin use: without extermination inspector use (5) Hypertension SNOMED Code(s): 82655066 ICD Code: I10 - ESSENTIAL (PRIMARY) HYPERTENSION Status: Acute Current Visit: Yes Qualifiers: Hypertension type: essential hypertension Qualified Code(s): I10 - Essential (primary) hypertension - Patient Summary/Data Operative Procedure(s) Performed: Right Total Knee Consults: Consultations 05/31/19 17:09 Consult to Case Management/Frame Repairer [CONS] Routine Comment: Physician Instructions: Service(s) to be Consulted: Case Management Reason for Consult: Plan for Discharge PT Evaluation and Treatment [CONS] Routine Please Evaluate and Treat. PT Reason for Consult: Post op Ortho Surgery Pending Discharge: Yes Discharge Disposition: Home w Home Health Special Instructions: WBAT on right, ROM as tolerated This query below is only for informational purposes and is not editable. Admission Diagnosis/Problem: Osteoarthritis Hospital Course: Tolerated procedure without complications, Slow progress with ambulation and transfers, Pain fairly well controlled on PO meds, unable to achieve independence for home, plan transfer to SNF for continued PT/OT. - Patient Instructions Diet: Usual Diet as Tolerated Activity: Apply Ice, As Tolerated, Full Weight Bearing Driving: Do Not Drive Showering/Bathing: May Shower Wound/Incision Care: Keep Operative Site/Wound Site Clean and Dry Notify Provider of: Fever, Increased Pain, Swelling and Redness, Drainage, Nausea and/or Vomiting - Discharge Plan *PRESCRIPTION DRUG MONITORING PROGRAM REVIEWED*: No *COPY OF PRESCRIPTION DRUG MONITORING REPORT IN PATIENT TIFFANY: No Prescriptions/Med Rec: oxyCODONE HCl/Acetaminophen [Percocet 5-325 mg Tablet] 2 each PO Q6HR PRN #40 tablet PRN Reason: Pain Enoxaparin Sodium [Lovenox] 30 mg SQ DAILY #28 ml Home Medications: Home Meds Acetaminophen [Tylenol Arthritis Pain] 650 mg PO Q6H PRN 11/25/16 [History] Aspirin 81 mg PO DAILY 11/25/16 [History] Ketoconazole [Ketoconazole 2%] 1 applic TOP BID 11/25/16 [History] Lisinopril 40 mg PO DAILY 11/25/16 [History] Potassium Duvall 500 gm PO DAILY 11/25/16 [History] Simvastatin [Zocor] 20 mg PO DAILY 11/25/16 [History] glipiZIDE [Glucotrol XL] 10 mg PO DAILY 11/25/16 [History] metFORMIN [Glucophage] 1,000 mg PO BIDMEALS 11/25/16 [History] Ibuprofen 600 mg PO BIDMEALS 02/18/18 [History] Potassium Chloride 10 meq PO DAILY 02/18/18 [History] Ferrous Sulfate 325 mg PO DAILY 03/12/19 [History] Enoxaparin Sodium [Lovenox] 30 mg SQ DAILY #28 ml 06/04/19 [Rx] oxyCODONE HCl/Acetaminophen [Percocet 5-325 mg Tablet] 2 each PO Q6HR PRN #40 tablet 06/04/19 [Rx] Oxygen Therapy Mode: Room Air Referrals: Say Muniz MD [Physician] - 06/08/19 2:30 pm (Please arrive 15 minutes early to register for appointment. Please register at the ER desk.) - Discharge Summary/Plan Comment DC Time >30 min.: Yes - General Info Functional Status: Reports: Pain Controlled, Tolerating Diet, Ambulating, Urinating - Review of Systems General: Reports: No Symptoms HEENT: Reports: No Symptoms Pulmonary: Reports: No Symptoms Cardiovascular: Reports: No Symptoms Gastrointestinal: Reports: No Symptoms Genitourinary: Reports: No Symptoms Musculoskeletal: Reports: Leg Pain Skin: Reports: No Symptoms Neurological: Reports: No Symptoms Psychiatric: Reports: No Symptoms - Patient Data Vitals - Most Recent: Last Vital Signs Temp 36.3 C 06/04/19 07:00 Pulse 107 H 06/04/19 07:00 Resp 18 06/04/19 07:00 BP 157/69 H 06/04/19 08:44 Pulse Ox 93 L 06/04/19 07:00 Weight - Most Recent: 142.428 kg I&O - Last 24 hours: Intake & Output 06/03/19 06/04/19 06/04/19 22:59 06:59 14:59 Intake Total 540 900 Output Total 225 200 Balance 315 700 Med Orders - Current: Current Medications Acetaminophen (Tylenol) 650 mg PO Q4H PRN PRN Reason: Pain/Fever Hydrocodone Bitart/Acetaminophen ([place] 325-5 Mg) 1 tab PO Q3H PRN PRN Reason: Pain (mild 1-3) Bandage/Support Products ( Nasal Fitter/Welder) 1 applic NASBOTH BID [facility] Last Admin: 06/04/19 08:42 Dose: 1 applic Docusate Sodium (Colace) 100 mg PO BID PRN PRN Reason: Constipation Last Admin: 06/04/19 05:15 Dose: 100 mg Enoxaparin Sodium (Lovenox) 30 mg SUBCUT DAILY [facility] Last Admin: 06/04/19 08:43 Dose: 30 mg Glipizide (Glucotrol Xl) 10 mg PO DAILY [facility] Last Admin: 06/04/19 08:43 Dose: 10 mg Lisinopril (Prinivil) 40 mg PO DAILY [facility] Last Admin: 06/04/19 08:44 Dose: 40 mg Magnesium Hydroxide (Milk Of Magnesia) 30 ml PO BID PRN PRN Reason: Constipation Last Admin: 06/04/19 05:15 Dose: 30 ml Metformin HCl (Glucophage) 1,000 mg PO BIDMEALS [facility] Last Admin: 06/04/19 08:41 Dose: 1,000 mg Morphine Sulfate (Morphine) 2 mg IVPUSH Q1H PRN PRN Reason: Breakthrough Pain Last Admin: 06/01/19 17:23 Dose: 2 mg Oxycodone/Acetaminophen (Percocet 325-5 Mg) 1 - 2 tab PO Q4H PRN PRN Reason: Pain Last Admin: 06/04/19 08:46 Dose: 1 tab Potassium Chloride (Potassium Chloride) 10 meq PO DAILY [facility] Last Admin: 06/04/19 08:44 Dose: 10 meq Discontinued Medications Bisacodyl (Dulcolax) 10 mg RECTAL ONETIME ONE Stop: 06/04/19 04:01 Last Admin: 06/04/19 05:16 Dose: 10 mg Dexamethasone (Dexamethasone) Confirm Administered Dose 4 mg .ROUTE .STK-MED ONE Stop: 05/31/19 13:47 Fentanyl (Sublimaze) Confirm Administered Dose 100 mcg .ROUTE .STK-MED ONE Stop: 05/31/19 09:55 Hydroxyzine HCl (Vistaril) 100 mg IM ONETIME ONE Stop: 05/31/19 15:04 Last Admin: 05/31/19 15:08 Dose: 100 mg Lactated Ringer's (Ringers, Lactated) 1,000 mls @ 75 mls/hr IV ASDIRECTED [facility] Last Admin: 05/31/19 10:52 Dose: 75 mls/hr Cefazolin Sodium 2 gm/ Sodium (Chloride) 50 mls @ 100 mls/hr IV ONETIME ONE Stop: 05/31/19 10:29 Last Admin: 05/31/19 18:25 Dose: Not Given Tranexamic Acid 1,000 mg/ (Sodium Chloride) 60 mls @ 240 mls/hr IV ONETIME ONE Stop: 05/31/19 11:29 Last Admin: 05/31/19 18:26 Dose: Not Given Tranexamic Acid 1,000 mg/ (Sodium Chloride) 60 mls @ 240 mls/hr IV ONETIME ONE Stop: 05/31/19 15:14 Last Admin: 05/31/19 15:04 Dose: 240 mls/hr Sodium Chloride (Normal Saline) 1,000 mls @ 125 mls/hr IV ASDIRECTED [facility] Last Admin: 06/01/19 12:11 Dose: 125 mls/hr Cefazolin Sodium/Dextrose 1 gm (/ Premix) 50 mls @ 100 mls/hr IV Q8H [facility] Stop: 06/01/19 10:29 Last Admin: 06/01/19 10:07 Dose: 100 mls/hr Midazolam HCl (Versed 1 Mg/Ml) Confirm Administered Dose 2 mg .ROUTE .STK-MED ONE Stop: 05/31/19 09:55 Morphine Sulfate (Morphine) 2 mg IVPUSH ONETIME ONE Stop: 05/31/19 15:03 Last Admin: 05/31/19 15:08 Dose: 2 mg Ondansetron HCl (Zofran) Confirm Administered Dose 4 mg .ROUTE .STK-MED ONE Stop: 05/31/19 13:47 Povidone Iodine (Betadine 10% Soln) Confirm Administered Dose 1 ml .ROUTE .STK- MED ONE Stop: 05/31/19 12:31 Last Admin: 05/31/19 13:36 Dose: 60 ml Propofol (Diprivan 20 Ml) Confirm Administered Dose 200 mg .ROUTE .STK-MED ONE Stop: 05/31/19 09:56 Propofol (Diprivan 20 Ml) Confirm Administered Dose 200 mg .ROUTE .STK-MED ONE Stop: 05/31/19 14:35 Rocuronium Duvall (Zemuron) Confirm Administered Dose 50 mg .ROUTE .STK-MED ONE Stop: 05/31/19 13:37 Sodium Biphosphate/Sodium Phosphate (Fleet Enema) 133 ml RECTAL ONETIME ONE Stop: 06/03/19 18:40 Last Admin: 06/03/19 23:55 Dose: 133 ml Succinylcholine Chloride (Quelicin) Confirm Administered Dose 200 mg .ROUTE .STK -MED ONE Stop: 05/31/19 13:37 - Exam General: Reports: Alert, Oriented HEENT: Reports: Pupils Equal, Pupils Reactive, EOMI, Mucous Membr. Moist/Ono Neck: Reports: Supple Lungs: Reports: Clear to Auscultation, Normal Respiratory Effort Cardiovascular: Reports: Regular Rate, Regular Rhythm GI/Abdominal Exam: Normal Bowel Sounds, Soft, Non-Tender, No Organomegaly, No Distention, No Abnormal Bruit, No Mass, Pelvis Stable (Female) Exam: Deferred Rectal (Female) Exam: Deferred Back Exam: Reports: Normal Inspection, Full Range of Motion Extremities: Joint Swelling, Leg Pain, Limited Range of Motion Skin: Reports: Warm, Dry, Intact Wound/Incisions: Reports: Healing Well, No Drainage Neurological: Reports: No New Focal Deficit Psy/Mental Status: Reports: Alert, Normal Affect, Normal Mood
--- NOTE | 2019-06-07 13:46 | PCM.SURGPN ---
- General Info Date of Service: 06/03/19 POD#: 3 Functional Status: Reports: Pain Controlled, Tolerating Diet, Urinating - Review of Systems General: Reports: No Symptoms HEENT: Reports: No Symptoms Pulmonary: Reports: No Symptoms Cardiovascular: Reports: No Symptoms Gastrointestinal: Reports: Constipation Genitourinary: Reports: No Symptoms Musculoskeletal: Reports: Leg Pain Skin: Reports: No Symptoms Neurological: Reports: No Symptoms Psychiatric: Reports: No Symptoms - Patient Data Vitals - Most Recent: Last Vital Signs Temp 36.3 C 06/04/19 07:00 Pulse 107 H 06/04/19 07:00 Resp 18 06/04/19 07:00 BP 157/69 H 06/04/19 08:44 Pulse Ox 93 L 06/04/19 07:00 Weight - Most Recent: 142.428 kg Med Orders - Current: Current Medications Discontinued Medications Acetaminophen (Tylenol) 650 mg PO Q4H PRN PRN Reason: Pain/Fever Hydrocodone Bitart/Acetaminophen ([place] 325-5 Mg) 1 tab PO Q3H PRN PRN Reason: Pain (mild 1-3) Bandage/Support Products ( Nasal Airborne Operations) 1 applic NASBOTH BID [facility] Last Admin: 06/04/19 08:42 Dose: 1 applic Bisacodyl (Dulcolax) 10 mg RECTAL ONETIME ONE Stop: 06/04/19 04:01 Last Admin: 06/04/19 05:16 Dose: 10 mg Dexamethasone (Dexamethasone) Confirm Administered Dose 4 mg .ROUTE .STK-MED ONE Stop: 05/31/19 13:47 Docusate Sodium (Colace) 100 mg PO BID PRN PRN Reason: Constipation Last Admin: 06/04/19 05:15 Dose: 100 mg Enoxaparin Sodium (Lovenox) 30 mg SUBCUT DAILY [facility] Last Admin: 06/04/19 08:43 Dose: 30 mg Fentanyl (Sublimaze) Confirm Administered Dose 100 mcg .ROUTE .STK-MED ONE Stop: 05/31/19 09:55 Glipizide (Glucotrol Xl) 10 mg PO DAILY [facility] [place] Last Admin: 06/04/19 08:43 Dose: 10 mg Hydroxyzine HCl (Vistaril) 100 mg IM ONETIME ONE Stop: 05/31/19 15:04 Last Admin: 05/31/19 15:08 Dose: 100 mg Lactated Ringer's (Ringers, Lactated) 1,000 mls @ 75 mls/hr IV ASDIRECTED [facility] Last Admin: 05/31/19 10:52 Dose: 75 mls/hr Cefazolin Sodium 2 gm/ Sodium (Chloride) 50 mls @ 100 mls/hr IV ONETIME ONE Stop: 05/31/19 10:29 Last Admin: 05/31/19 18:25 Dose: Not Given Tranexamic Acid 1,000 mg/ (Sodium Chloride) 60 mls @ 240 mls/hr IV ONETIME ONE Stop: 05/31/19 11:29 Last Admin: 05/31/19 18:26 Dose: Not Given Tranexamic Acid 1,000 mg/ (Sodium Chloride) 60 mls @ 240 mls/hr IV ONETIME ONE Stop: 05/31/19 15:14 Last Admin: 05/31/19 15:04 Dose: 240 mls/hr Sodium Chloride (Normal Saline) 1,000 mls [facility] Admin: 06/01/19 12:11 Dose: 125 mls/hr Cefazolin Sodium/Dextrose 1 gm (/ Premix) 50 mls @ 100 mls/hr IV Q8H [facility] Stop: 06/01/19 10:29 Last Admin: 06/01/19 10:07 Dose: 100 mls/hr Lisinopril (Prinivil) 40 mg PO DAILY [facility] Last Admin: 06/04/19 08:44 Dose: 40 mg Magnesium Hydroxide (Milk Of Magnesia) 30 ml PO BID PRN PRN Reason: Constipation Last Admin: 06/04/19 05:15 Dose: 30 ml Metformin HCl (Glucophage) 1,000 mg PO BIDMEALS [facility] Last Admin: 06/04/19 08:41 Dose: 1,000 mg Midazolam HCl (Versed 1 Mg/Ml) Confirm Administered Dose 2 mg .ROUTE .STK-MED ONE Stop: 05/31/19 09:55 Morphine Sulfate (Morphine) 2 mg IVPUSH ONETIME ONE Stop: 05/31/19 15:03 Last Admin: 05/31/19 15:08 Dose: 2 mg Morphine Sulfate (Morphine) 2 mg IVPUSH Q1H PRN PRN Reason: Breakthrough Pain Last Admin: 06/01/19 17:23 Dose: 2 mg Ondansetron HCl (Zofran) Confirm Administered Dose 4 mg .ROUTE .STK-MED ONE Stop: 05/31/19 13:47 Oxycodone/Acetaminophen (Percocet 325-5 Mg) 1 - 2 tab PO Q4H PRN PRN Reason: Pain Last Admin: 06/04/19 08:46 Dose: 1 tab Potassium Chloride (Potassium Chloride) 10 meq PO DAILY [facility] Last Admin: 06/04/19 08:44 Dose: 10 meq Povidone Iodine (Betadine 10% Soln) Confirm Administered Dose 1 ml .ROUTE .STK- MED ONE Stop: 05/31/19 12:31 Last Admin: 05/31/19 13:36 Dose: 60 ml Propofol (Diprivan 20 Ml) Confirm Administered Dose 200 mg .ROUTE .STK-MED ONE Stop: 05/31/19 09:56 Propofol (Diprivan 20 Ml) Confirm Administered Dose 200 mg .ROUTE .STK-MED ONE Stop: 05/31/19 14:35 Rocuronium [place] (Zemuron) Confirm Administered Dose 50 mg .ROUTE .STK-MED ONE Stop: 05/31/19 13:37 Sodium Biphosphate/Sodium Phosphate (Fleet Enema) 133 ml RECTAL ONETIME ONE Stop: 06/03/19 18:40 Last Admin: 06/03/19 23:55 Dose: 133 ml Succinylcholine Chloride (Quelicin) Confirm Administered Dose 200 mg .ROUTE .STK -MED ONE Stop: 05/31/19 13:37 - Exam Wound/Incisions: Healing Well, No Drainage General: Alert, Oriented HEENT: Pupils Equal Neck: Supple Lungs: Clear to Auscultation, Normal Respiratory Effort Cardiovascular: Regular Rate, Regular Rhythm GI/Abdominal Exam: Normal Bowel Sounds, Soft, Non-Tender, No Distention Extremities: Leg Pain, Limited Range of Motion Skin: Warm, Dry, Intact Neurological: No New Focal Deficit Psy/Mental Status: Alert, Normal Affect, Normal Mood - Problem List & Annotations (1) Morbid obesity SNOMED Code(s): 139768830 Code(s): E66.01 - MORBID (SEVERE) OBESITY DUE TO EXCESS CALORIES Status: Chronic (2) Postoperative anemia due to acute blood loss SNOMED Code(s): 74611806943266068 Code(s): D62 - ACUTE POSTHEMORRHAGIC ANEMIA Status: Acute (3) Status post total right knee replacement SNOMED Code(s): 7735301663101, 7508756420499 Code(s): Z96.651 - PRESENCE OF RIGHT ARTIFICIAL KNEE JOINT Status: Acute (4) Diabetes mellitus SNOMED Code(s): 56982124 Code(s): E11.9 - TYPE 2 DIABETES MELLITUS WITHOUT COMPLICATIONS Status: Chronic Qualifiers: Diabetes mellitus type: type 2 Diabetes mellitus terminal makeup operator insulin use: without half-way use (5) Hypertension SNOMED Code(s): 77460045 Code(s): I10 - ESSENTIAL (PRIMARY) HYPERTENSION Status: Acute Qualifiers: Hypertension type: essential hypertension Qualified Code(s): I10 - Essential (primary) hypertension - Problem List Review Problem List Initiated/Reviewed/Updated: Yes - Assessment Assessment (Free Text/Narrative):: Has been up walking a little more today but still having difficulty with transferring out of bed. Mobility is still limited. She was hoping to return home but we did discuss going to a SNF until she was moving better. - Plan Plan (Free Text/Narrative):: Continue OT/PT, referral made to SNF for short stay, should be able to go tomorrow if bed is available.
== END 2019-06-04 09:35 | DRG 470 ==
LOC: JP.SDS 09:26 → JP.2SS 15:50 → JP.SDS 06-02 12:38
PROVIDERS: ADMIT Specialist; ATTEND Specialist
PROC: 0SRC0J9 Replacement of Right Knee Joint with Synthetic Substitute, Cemented, Open Approach (ICD-10-PCS; principal; 2019-06-02)
DX: M17.11 Unilateral primary osteoarthritis, right knee (principal); D62 Acute posthemorrhagic anemia; Z68.44 Body mass index [BMI] 60.0-69.9, adult; E66.01 Morbid (severe) obesity due to excess calories; E11.9 Type 2 diabetes mellitus without complications; I10 Essential (primary) hypertension; Z79.82 Long term (current) use of aspirin; Z79.84 Long term (current) use of oral hypoglycemic drugs; Z91.018 Allergy to other foods; Z91.011 Allergy to milk products; Z88.8 Allergy status to other drugs, medicaments and biological substances
CPT/HCPCS: 36415; 73560-26-RT; 73560-RT; 80048; 82962; 85027; 86850; 86900; 86901; 97110-GP; 97140-GP; 97161-GP; 97530-GP; 97535-GP; A9270-GY; C1713; J0330; J0690; J1100; J1650; J2250; J2270; J2405; J2704; J3010; J3410; J3490; J7030; J7050; J7120